=== PATIENT | male | born 1990 | race African-American/Black ===

== ENCOUNTER 2017-11-21 03:19 | Emergency (ER) | payer MEDICAID, OTHER ==
[~2017-11-21] VITALS: Ht 177.8 cm; Wt 63.5 kg
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
--- NOTE | 2017-11-21 03:20 | NUR ---
ER MD ANDRE AT BEDSIDE
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
[2017-11-21] MEDS ORDERED: LORAZEPAM INJ 2 MG/ML VIAL ONE (03:47)
--- NOTE | 2017-11-21 03:54 | NUR ---
PT OFF TO CT
[2017-11-21] MEDS ORDERED: LORAZEPAM INJ 2 MG/ML VIAL IM ONE (04:00)
--- NOTE | 2017-11-21 04:18 | NUR ---
PT BACK FROM CT
[2017-11-21 05:23] VITALS: BP 130/76
== END 2017-11-21 05:23 | disposition home or self-care (01) ==
LOC: ER 03:19
DX: S09.8XXA Other specified injuries of head, initial encounter (principal); S13.4XXA Sprain of ligaments of cervical spine, initial encounter; F41.9 Anxiety disorder, unspecified; K21.9 Gastro-esophageal reflux disease without esophagitis; V49.49XA Driver injured in collision with other motor vehicles in traffic accident, initial encounter; Y93.89 Activity, other specified; Y92.410 Unspecified street and highway as the place of occurrence of the external cause; Y99.8 Other external cause status
CPT/HCPCS: 70450-TC; 72125-TC; A4606; J2060; Z7610

== ENCOUNTER → 2018-02-02 | Emergency (ER) | payer MEDICAID ==
[~2018-02-02] VITALS: Ht 177.8 cm; Wt 72.6 kg
[2018-02-02 22:09] VITALS: BP 124/68
== END | disposition home or self-care (01) ==
LOC: ER 21:31
DX: T16.2XXA Foreign body in left ear, initial encounter (principal); K21.9 Gastro-esophageal reflux disease without esophagitis; F41.9 Anxiety disorder, unspecified; X58.XXXA Exposure to other specified factors, initial encounter; Y93.89 Activity, other specified; Y92.89 Other specified places as the place of occurrence of the external cause; Y99.8 Other external cause status
CPT/HCPCS: A4606; Z7610

== ENCOUNTER 2021-04-30 02:57 | Emergency (ER) | payer MEDICAID ==
[~2021-04-30] VITALS: Ht 177.8 cm; Wt 68.0 kg
[2021-04-30] MEDS ORDERED: ACETAMINOPHEN ES 500 MG TABLET ONE (03:19)
[2021-04-30] MEDS ORDERED: ACETAMINOPHEN ES 500 MG TABLET PO ONE (03:30)
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
[2021-04-30 03:45] VITALS: BP 124/70
== END 2021-04-30 03:45 | disposition left against medical advice (07) ==
LOC: ER 03:02
DX: S42.002A Fracture of unspecified part of left clavicle, initial encounter for closed fracture (principal); R07.89 Other chest pain; K21.9 Gastro-esophageal reflux disease without esophagitis; F41.9 Anxiety disorder, unspecified; Z60.2 Problems related to living alone; V49.59XA Passenger injured in collision with other motor vehicles in traffic accident, initial encounter; Y93.89 Activity, other specified; Y92.413 State road as the place of occurrence of the external cause; Y99.8 Other external cause status
CPT/HCPCS: 70450-TC; 71045-TC; 72125-TC